=== PATIENT | female | born 1935 | race Caucasian/White ===

== ENCOUNTER 2017-07-26 08:00 | Outpatient (CLI) | payer MEDICARE, OTHER ==
[2017-07-26 13:42] LABS: ALBUMIN/GLOBULIN RATIO 1.5 (1.0-2.2); ALKALINE PHOSPHATASE 48 IU/L (42-121); ALT ALANINE AMINOTRANSFERASE 15 IU/L (10-60); AST ASPARTATE AMINOTRANSFERASE 26 IU/L (10-42); BILIRUBIN,TOTAL 0.5 mg/dL (0.2-1.0); BUN - BLOOD UREA NITROGEN 17 mg/dL (6-20); CALCIUM 9.2 mg/dL (8.5-10.3); CARBON DIOXIDE - CO2 30 mmol/L (21-32); CHLORIDE 104 mmol/L (101-111); CHOL/HDL RATIO 2.6 (<4.4); CHOLESTEROL 191 mg/dL; CREATININE 0.9 mg/dL (0.4-1.0); DIGOXIN 0.6 ng/mL; GFR - MDRD 60 (>89); GLUCOSE 90 mg/dL (70-100); HDL CHOLESTEROL 73 mg/dL; LDL CHOLESTEROL,CALCULATED 107 mg/dL; LDL/HDL RATIO 1.5 (<4.4); SODIUM 138 mmol/L (135-145); TOTAL PROTEIN 6.6 g/dL (6.7-8.2); VLDL CHOLESTEROL 11 mg/dL
== END 2017-07-26 08:01 | disposition home or self-care (01) ==
LOC: LAB.N 08:00
PROVIDERS: ATTEND Internal Medicine Cardiovascular Disease
DX: E78.00 Pure hypercholesterolemia, unspecified (principal); I47.1 Supraventricular tachycardia
CPT/HCPCS: 36415; 80053; 80061; 80162

== ENCOUNTER 2019-04-10 10:16 | Outpatient (CLI) | payer MEDICARE, OTHER ==
[2019-04-10 12:19] LABS: ALBUMIN 3.5 g/dL (3.2-5.5); ALBUMIN/GLOBULIN RATIO 1.1 (1.0-2.2); ALKALINE PHOSPHATASE 52 IU/L (42-121); ALT ALANINE AMINOTRANSFERASE 14 IU/L (10-60); AST ASPARTATE AMINOTRANSFERASE 22 IU/L (10-42); BILIRUBIN,TOTAL 0.6 mg/dL (0.2-1.0); BUN - BLOOD UREA NITROGEN 16 mg/dL (6-20); CALCIUM 9.4 mg/dL (8.5-10.3); CARBON DIOXIDE - CO2 30 mmol/L (21-32); CHLORIDE 104 mmol/L (101-111); CHOL/HDL RATIO 2.6 (<4.4); CHOLESTEROL 189 mg/dL; CREATININE 0.8 mg/dL (0.4-1.0); DIGOXIN 0.2 ng/mL; GFR - MDRD 68 (>89); GLUCOSE 92 mg/dL (70-100); HDL CHOLESTEROL 72 mg/dL; LDL CHOLESTEROL,CALCULATED 99 mg/dL; LDL/HDL RATIO 1.4 (<4.4); SODIUM 141 mmol/L (135-145); TOTAL PROTEIN 6.6 g/dL (6.7-8.2); VLDL CHOLESTEROL 18 mg/dL
== END 2019-04-10 23:59 | disposition home or self-care (01) ==
LOC: LAB.N 10:16
PROVIDERS: ATTEND Internal Medicine Cardiovascular Disease
DX: I47.1 Supraventricular tachycardia (principal); E78.5 Hyperlipidemia, unspecified
CPT/HCPCS: 36415; 80053; 80061; 80162; 83721

== ENCOUNTER 2021-04-10 06:52 | Outpatient (CLI) | payer MEDICARE, OTHER | END 2021-04-10 06:53 | disposition EMS.NT | LOC: EMS 06:52 | DX: M54.9 Dorsalgia, unspecified (principal) ==

== ENCOUNTER 2023-05-09 09:27 | Outpatient (CLI) | payer MEDICARE, OTHER ==
[2023-05-09 12:31] LABS: DIGOXIN 0.5 ng/mL
== END 2023-05-09 09:28 | disposition home or self-care (01) ==
LOC: LAB.N 09:27
PROVIDERS: ATTEND Internal Medicine Cardiovascular Disease
DX: I47.10 Supraventricular tachycardia, unspecified (principal)
CPT/HCPCS: 36415; 80162

== ENCOUNTER 2024-03-24 10:00 | Outpatient (CLI) | payer MEDICARE, OTHER | END 2024-03-24 10:15 | disposition home or self-care (01) | LOC: LAB.N 10:00 | PROVIDERS: ATTEND Physician Assistant Medical | DX: N30.00 Acute cystitis without hematuria (principal) | CPT/HCPCS: 87086 ==

== ENCOUNTER 2024-04-10 11:55 | Outpatient (CLI) | payer MEDICARE, OTHER ==
[2024-04-10 18:18] LABS: ALBUMIN 3.8 g/dL (3.2-5.5); ALBUMIN/GLOBULIN RATIO 1.4 (1.0-2.2); ALKALINE PHOSPHATASE 46 IU/L (42-121); ALT ALANINE AMINOTRANSFERASE 15 IU/L (10-60); AST ASPARTATE AMINOTRANSFERASE 23 IU/L (10-42); BILIRUBIN,TOTAL 0.5 mg/dL (0.2-1.0); BUN - BLOOD UREA NITROGEN 28 mg/dL (6-20); CALCIUM 9.9 mg/dL (8.5-10.3); CARBON DIOXIDE - CO2 29 mmol/L (21-32); CHLORIDE 103 mmol/L (101-111); CREATININE 0.9 mg/dL (0.6-1.3); DIGOXIN 0.7 ng/mL; GFR - MDRD 59 (>89); GLUCOSE 92 mg/dL (74-104); POTASSIUM 4.5 mmol/L (3.5-4.5); SODIUM 138 mmol/L (135-145); TOTAL PROTEIN 6.5 g/dL (6.4-8.9)
== END 2024-04-10 11:56 | disposition home or self-care (01) ==
LOC: LAB.N 11:55
PROVIDERS: ATTEND Internal Medicine Cardiovascular Disease
DX: Z51.81 Encounter for therapeutic drug level monitoring (principal); Z79.899 Other long term (current) drug therapy; I10 Essential (primary) hypertension
CPT/HCPCS: 36415; 80053; 80162